=== PATIENT | female | born 1930 | race Caucasian/White ===

== ENCOUNTER 2016-07-21 04:37 | Emergency (ER) | payer MEDICARE ==
[~2016-07-21] VITALS: Ht 160 cm; Wt 81.8 kg
[~2016-07-21 04:37] MED LIST: ASPI81TA3 PO; LEVOXYL75 MCG PO; NEXIUM20 MG PO; TOLT4CAP PO; ZES5 PO
[2016-07-21 04:38] VITALS: BP 122/66; PULSE 61; RESP 16; O2SAT 97
--- NOTE | 2016-07-21 04:40 | ED.REPORT ---
HPI-NVD Date of Service Jul 21, 2016 ED Provider: Dr. Newman Pt is an 86 y/o female w/ a hx of HTN, [place], hypothyroid, presenting to the ED via EMS c/o diarrhea onset yesterday. Pt experienced some episodes of diarrhea yesterday which has progressively worsened to 10 episodes today. Though she denies edgardo blood, she reports that her stool has been very dark in color. She c/o associated nausea, chills, diffuse burning abdominal pain, decreased appetite. She denies vomiting, fever, hematochezia, dysuria, CP, SOB, hematuria. She has had some episodes of infrequent diarrhea in the past but never something like this. Last meal was yesterday morning. Nursing Notes Stated Complaint: NAUSEA,VOMITING,DIARRHEA Chief Complaint: Female Abdominal Pain Nursing Notes Reviewed: Yes Allergies: Coded Allergies: ciprofloxacin (Verified Allergy, Unknown, 07/21/16) ciprofloxacin HCl (Verified Allergy, Unknown, 07/21/16) Uncoded Allergies: PENICILLIN (Allergy, Mild, 07/21/16) Scheduled Aspirin-Expunged Drug, Do Not Renew! (Aspirin-Expunged Drug, Do Not Renew!) 81 Mg Tab.chew 81 MG PO DAILY Esomeprazole-Expunged Drug, Do Not Renew! (Esomeprazole-Expunged Drug, Do Not Renew!) 20 Mg Capsule.dr 20 MG PO PRN Levothyroxine-Expunged Drug, Do Not Renew! (Levoxyl-Expunged Drug, Do Not Renew! ) 75 Mcg Tablet 75 MCG PO DAILY Lisinopril-Expunged Drug, Do Not Renew! (Lisinopril-Expunged Drug, Do Not Renew! ) 5 Mg Tablet 5 MG PO DAILY Tolterodine-Expunged Drug, Do Not Renew! (Tolterodine [place]-Expunged Drug, Do Not Renew!) 4 Mg Cap.sr.24h 4 MG PO DAILY Scheduled PRN Loperamide (Loperamide) 2 Mg Capsule 2 MG PO Q4H PRN PRN For Diarrhea or Loose Stool General Time Seen by MD: 04:39 Chief Complaint Nausea, Vomiting, Diarrhea Hx Obtained From: Patient, EMS Arrived By: Ambulance Onset Occurred: 1 day ago Symptom Duration: Since onset Location: : Diffuse Quality: Aching, Burning Severity: Current: Mild Severity: Maximum: Mild Similar Sx Previous: No Past Medical History Past Medical History Hx [place] Hypertension Hypothyroid Past Surgical History CABG x4 Smoking History Never Smoker Social History Alcohol Use: Denies alcohol use Drug Use: Denies drug use Ambulatory Status Independent Review of Systems Constitutional: Reports: Chills, Denies: Fever GI: Reports: Abdominal pain, Anorexia, Diarrhea, Melena, Nausea, Denies: Hematochezia, Vomiting Complete sys rev & neg: except as marked. Respiratory: Denies: Non-productive cough, Shortness of breath Cardiovascular: Denies: Chest pain, Dyspnea on exertion, Edema Female: Denies: Dysuria, Hematuria Physical Exam Initial Vital Signs Vital Signs (First) Date Time Temp Pulse Resp B/P Pulse Ox O2 Delivery O2 Flow Rate FiO2 07/21/16 04:38 36.8 61 16 122/66 97 Room Air Initial VS: Reviewed, Vital signs normal Head / Eyes: Atraumatic, Normocephalic, PERRL Neck: Supple, Full range of motion Respiratory: Breath sounds normal, Clear to auscultation, No respiratory distress Cardiovascular: Regular rate & rhythm, Heart sounds normal, Intact distal pulses Neurologic: Alert, Oriented, Nonfocal Psychiatric: Mood/affect normal, Behavior normal, Normal thought content General/Constitutional: Awake, Alert, No acute distress, Cooperative, Not toxic appearing Abdomen: Atraumatic, Soft, Non-tender, No guarding, No rebound, No distention, No palpable mass ENT: Atraumatic, Airway patent Mouth: Positive: Mucous membranes dry Skin: Atraumatic, Color NL, Warm, Dry Poor skin turgor Rectum / Perineum: Blood - occult heme -, No hemorrhoids, No lesions, Sphincter tone NL Basting Cleaner present. Stool is green in color. Interpretation & Diagnostics Lab Results Interpretation Result Diagram: 07/21/16 0445 07/21/16 0445 Test 07/21/16 04:45 07/21/16 06:00 White Blood Count 7.2th/mm3 (3.8-10.1) Red Blood Count 4.47mil/mm3 (3.90-5.20) Hemoglobin 13.7g/dL (12.0-15.6) Hematocrit 39.9% (35.0-46.0) Mean Corpuscular Volume 89.3fL (81-100) Mean Corpuscular Hemoglobin 30.6pg (27.0-35.0) Mean Corpuscular Hemoglobin Concent 34.3% (32.0-37.0) Red Cell Distribution Width 13.9% (12.3-15.4) Platelet Count 159bil/L (150-400) Neutrophils (%) (Auto) 74.7% (40-74) Lymphocytes (%) (Auto) 13.8% (14-46) Monocytes (%) (Auto) 8.5% (4-12) Eosinophils (%) (Auto) 2.6% (0-5) Basophils (%) (Auto) 0.3% (0-3) Hold Purple Top Tube Received (Received) Hold Blue Top Tube Received (Received) Sodium Level 141mEq/L (134-144) Potassium Level 4.8mEq/L (3.5-5.2) Chloride Level 104mEq/L (97-108) Carbon Dioxide Level 23mmol/L (18-29) Blood Urea Nitrogen 19mg/dL (8-27) Creatinine 1.17mg/dL (0.57-1.00) Estimat Glomerular Filtration Rate 63mL/min (>59) Glucose Level 178mg/dL (60-99) Lactic Acid Level 1.0mmol/L (0.4-2.0) Calcium Level 9.6mg/dL (8.5-10.1) Magnesium Level 2.2mg/dL (1.6-2.6) Total Bilirubin 1.0mg/dL (0.0-1.2) Aspartate Amino Transf (AST/SGOT) 18U/L (0-50) Alanine Aminotransferase (ALT/SGPT) 16U/L (0-32) Alkaline Phosphatase 48U/L (25-165) Total Protein 7.5g/dL (6.4-8.4) Albumin 4.3g/dL (3.4-5.0) Lipase 35U/L (13-60) Hold Butler Top Tube Received (Received) Hold Chaudhry Top Tube Received (Received) Re-Eval/Medical Decision Med Decision/Clinical Course Overall this patient presents with a diarrheal illness that is now resolved, with stable vital signs, normal laboratory studies and a benign abdominal exam without focal rebound guarding or tenderness. I do not suspect a life-threatening emergency at this point. I did have an extensive discussion with patient about signs symptoms and return precautions. She is agreeable to not have a CAT scan at this point given reassuring labs and physical exam. A rectal exam was performed in her stool does not represent GI bleeding. She denies any urinary tract infection symptoms. She will be discharged on loperamide. Re-Evaluation/Progress #1: Time of Eval: 06:37 Re-Evaluation/Progress Note: IDr. Cruz, assumed care of the patient from Dr. Newman at change of shift. Re-Evaluation/Progress #2: Time of Eval: 07:18 Re-Evaluation/Progress Note: Performed rectal examination. Counseled Regarding: Diagnosis, Lab results Discharge & Departure Shift Change Sign-Out Patient Care Transferred: Yes Discussed Complaint(s): Yes Impression: Primary Impression: Diarrhea Disposition: Home Discharge Condition All VS Reviewed: Yes Condition: Stable Patient Instructions: Acute Abdominal Pain (ED) Additional Instructions: Use loperamide if you develop recurrent diarrhea. Watch for fever or vomiting. If you develop severe abdominal pain, fever, vomiting, bloody stool or other concerns you should call your regular doctor or return to the ER. Referrals: Marino Perkins PA-C (PCP) Care Transferred to: Dr. Jonathan Cruz Care Transferred at: 06:00 Scribe Attestation Portions of this note were transcribed by Stiven Renee. Dr. Paty Frausto personally performed the history, physical exam and medical decision-making; I reviewed and confirmed the accuracy of the information in the transcribed note. Signed by Dev Lisa, 07/21/16 - 1790 Portions of this note were transcribed by Manuel Mckenzie. Dr. Nancy Frausto, personally performed the history, physical exam and medical decision-making; I reviewed and confirmed the accuracy of the information in the transcribed note. Signed by: Dev Cordova, 07/21/2016 and 07:30 copies to: Marino Perkins PA-C, Howard L MD Jul 21, 2016 04:40 STIVEN RENEE Jul 21, 2016 04:46 MANUEL MCKENZIE Jul 21, 2016 06:45 Jonathan Cruz DO Jul 21, 2016 07:56
[2016-07-21] MEDS ORDERED: 0.9% Sodium Chloride 1,000 ML IV ONE (05:17)
[2016-07-21] MEDS ORDERED: Pantoprazole 4 mg/mL 10 mL Inj IVPUSH ONE (05:20)
[2016-07-21] MEDS ORDERED: Ondansetron 2 mg/mL 2 mL Inj IVPUSH PRN (05:20)
[2016-07-21 05:28] LABS: BASOPHILS % (AUTO) 0.3 % (0-3); EOSINOPHILS % (AUTO) 2.6 % (0-5); MONOCYTES % (AUTO) 8.5 % (4-12); Mean Corpuscular Hemoglobin 30.6 pg (27.0-35.0); Mean Corpuscular Volume 89.3 fL (81-100); NEUTROPHILS % (AUTO) 74.7 % (40-74); Platelet Count 159 bil/L (150-400)
[2016-07-21 05:37] LABS: Magnesium 2.2 mg/dL (1.6-2.6)
[2016-07-21] MEDS ORDERED: LOPE2CAP PO (07:28)
[2016-07-21 07:50] VITALS: BP 122/66; PULSE 61; RESP 16; O2SAT 97
== END 2016-07-21 07:53 | disposition home or self-care (01) ==
LOC: SED 04:37
DX: R19.7 Diarrhea, unspecified (principal); I10 Essential (primary) hypertension; E03.9 Hypothyroidism, unspecified; I25.2 Old myocardial infarction; Z95.1 Presence of aortocoronary bypass graft; Z79.82 Long term (current) use of aspirin; Z88.1 Allergy status to other antibiotic agents; Z88.0 Allergy status to penicillin
CPT/HCPCS: 36415; 80053; 83605; 83690; 83735; 85025; 96374; 96375; 99284; J2405; J7030